=== PATIENT | male | born 1990 | race Two or more races ===

== ENCOUNTER 2020-11-21 01:25 | Emergency (ER) | payer MEDICAID, OTHER ==
[2020-11-21] MEDS ORDERED: MORPHINE SULFATE 4 MG/ML, 1ML IVPush PRN (01:30)
[2020-11-21] MEDS ORDERED: MORPHINE SULFATE 4 MG/ML, 1ML ONE (01:41)
[2020-11-21 01:43] VITALS: BP 111/44
[2020-11-21] MEDS ORDERED: PROPOFOL 10 MG/ML, 20ML ONE (02:12)
[2020-11-21] MEDS ORDERED: PROPOFOL 10 MG/ML, 20ML IVPush ONE ×2 (02:30→03:30)
--- NOTE | 2020-11-21 04:43 | NUR ---
Patient/Caregiver given discharge instructions and they have confirmed that they understand the instructions. NAD, all questions answered appropriately, denies additional needs at this time. No personal belongings left in room after discharge. piv dc prior to pt leaving facility
== END 2020-11-21 04:57 | disposition home or self-care (01) ==
LOC: ED 02:29
DX: S83.195A Other dislocation of left knee, initial encounter (principal); J45.909 Unspecified asthma, uncomplicated; W18.30XA Fall on same level, unspecified, initial encounter; Y93.89 Activity, other specified; Y92.89 Other specified places as the place of occurrence of the external cause; Y99.8 Other external cause status
CPT/HCPCS: 27560; 73560; 96374; 99285; J2270; J2704